=== PATIENT | male | born 2005 | race Caucasian/White ===

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

== ENCOUNTER 2024-06-15 19:50 | Emergency (ER) | payer OTHER, SELFPAY ==
[2024-06-15 20:34] VITALS: BP 150/78; PULSE 106; RESP 20; TEMP 37.3; O2SAT 100; BMI 24.4
--- NOTE | 2024-06-15 20:35 | ED_ITS ---
HPI - URI/Sore Throat General Chief Complaint: General Medical Stated Complaint: sore throat Time Seen by Provider: 06/15/24 20:35 Source: patient Mode of arrival: ambulatory Limitations: no limitations History of Present Illness ED Provider: Derek Santos PA-C HPI Narrative: 18 yo male presents to the ER for evaluation of worsening sore throat for the last 5 days along with pain with swallowing. Symptoms have been worsening. No known sick contacts. No known fevers. He attempted to gargle with salt water but it made him vomit. No chest pain, shortness of breath, abdominal pain. No rashes. MD elicited complaint: sore throat Onset (ago): day(s) (5) Consistency: progressively worsening Severity: severe Able to tolerate fluids by mouth: Yes Exacerbating factors: swallowing Relieving factors: nothing Associated symptoms: headache, nasal congestion and sore throat Treatments prior to arrival: none Related Data Previous Rx's ?Medication ?Instructions ?Recorded loratadine 10 mg tablet (Allergy 10 mg PO DAILY PRN allergy 05/12/21 Relief (loratadine)) symptoms 30 days #30 tabs azithromycin 250 mg tablet See Rx Instructions PO .COMPLEX #6 06/15/24 (Zithromax Z-Deuce) tabs ibuprofen 600 mg tablet 600 mg PO Q8H PRN fever or pain 06/15/24 #14 tabs Allergies Allergy/AdvReac Type Severity Reaction Status Date / Time Seasonal Allergies Allergy Mild runny nose Verified 06/15/24 20:36 amoxicillin [AMOXICILLIN] Allergy Unknown RASH, hives Verified 06/15/24 20:36 penicillin V Allergy Unknown rash Verified 06/15/24 20:36 Penicillins [PENICILLINS] Allergy Unknown RASH Verified 06/15/24 20:36 Review of Systems Review of Systems: Yes all other systems are reviewed and are negative [facility] Past Medical History Surgical History No pertinent past surgical history Family History Family History Mother Migraines Father Migraines Maternal Grandfather Diabetes type 2, controlled Maternal Grandmother Diabetes type 2, controlled Hypertension Social History Social History (Updated 08/25/21 @ 08:39 by Dipti Chappell CMA) Household Members: Family Physical Exam Vital Signs: Vital Signs: Last Vital Signs Temp 99.2 F 06/15/24 20:34 Pulse 106 H 06/15/24 20:34 Resp 20 06/15/24 20:34 BP 150/78 H 06/15/24 20:34 Pulse Ox 100 06/15/24 20:34 O2 Del Method Room Air 06/15/24 20:34 BMI result Body Mass Index 24.4 Appearance: Alert. Oriented X3. No acute distress. Head: normocephalic, atraumatic. Eyes: Pupils equal, round and reactive to light. ENT: Pharynx with moist mucous membranes. Bilateral tonsillar swelling with diffuse exudate. Uvula midline. Slightly muffled voice. Handling secretions normally. Neck: Normal inspection. Neck supple. CVS: Normal heart rate and rhythm. Pulses normal. Respiratory: No respiratory distress. Breath sounds normal. Skin: Skin warm and dry. Normal skin color. Normal skin turgor. No rashes. Extremities: No lower extremity edema. No joint swelling. Neuro/psych: Oriented X 3. Grossly normal, nonfocal Medical Decision Making Medical Decision Making MDM Narrative: 18-year-old male presents to the ER for evaluation of worsening sore throat and painful swallowing for the last 5 days. He does have a slightly muffled voice on exam. He has bilateral tonsillar swelling or exudates consistent with strep pharyngitis. His uvula is midline knees handling secretions normally. Bilateral peritonsillar abscess is less likely. He is nontoxic appearing. Vital signs are stable in triage, he is mildly tachycardic with a temperature of 99.2 degrees. At this time comfortable with treatment for strep pharyngitis, will prescribe a Z-Deuce as he is allergic to penicillin. Ibuprofen also prescribed. Counseled on other symptomatic measures. Counseled on return precautions. Stable for discharge home Differential Diagnosis Differential Diagnoses: The differential diagnosis associated with the presentation includes strep, covid, flu, rsv, other viral syndrome, bronchitis, pneumonia, less likely peritonsillar abcsess or retropharyngeal abscess External Record Review External record reviewed: Outpatient record and Prior outpatient labs Prescription Management I considered prescription management with: Pain Medication and Antibiotic Critical Care Time Critical Care Time Critical Care Time: No Discharge Plan Discharge Clinical Impression: Strep throat Patient Disposition: Home, Self-Care Instructions: Strep Throat (DC) Additional Instructions: Take the prescribed antibiotics as directed, complete the entire course and do not miss any doses Recommend [id number] Chloraseptic spray or Cepacol lozenges as needed for sore throat. These medications will help numb the back your throat. Take prescribed anti-inflammatory pain medication every 6-8 hours. Rest and drink plenty of fluids. If you develop new or worsening symptoms call 911 or come back to the ER for further evaluation. Prescriptions: New azithromycin [Zithromax Z-Deuce] 250 mg tablet See Rx Instructions .ROUTE .COMPLEX Qty: 6 0RF Rx Instructions: take 500 mg today (day 1), then 250 mg for 4 days (days 2-5) ibuprofen 600 mg tablet 600 mg PO Q8H PRN (Reason: fever or pain) Qty: 14 0RF No Action loratadine [Allergy Relief (loratadine)] 10 mg tablet 10 mg PO DAILY PRN (Reason: allergy symptoms) 30 Days Qty: 30 3RF Stand Alone Forms: Work/School Release Print Language: Pashto
[2024-06-15 20:42] VITALS: BP 150/78; PULSE 106; RESP 20; TEMP 37.3; O2SAT 100
== END 2024-06-15 21:01 | disposition home or self-care (01) ==
LOC: HO.ED 20:54
PROVIDERS: Emergency Provider Emergency Medicine; PCP Physician Assistant
DX: J02.0 Streptococcal pharyngitis (principal)
CPT/HCPCS: 99282; 99283

== ENCOUNTER 2024-06-17 17:02 | Emergency (ER) | payer OTHER, SELFPAY ==
[2024-06-17 17:10] VITALS: BP 112/66; PULSE 104; RESP 18; TEMP 36.7; O2SAT 99; BMI 25.0
--- NOTE | 2024-06-17 17:11 | ED.GENADULT ---
HPI - General Adult General Chief complaint: General Medical Stated complaint: not feeling good Time Seen by Provider: 06/17/24 18:56 Source: patient Mode of arrival: ambulatory Limitations: no limitations History of Present Illness ED Provider: armando LUEVANO narrative: Patient is a 18-year old male presenting to the ED with complaint of worsening sore throat after being started on antibiotics for strep on 06/15, symptoms began 5 days prior to that. Denies fevers. Reports difficulty/painful swallowing food, medication. Feels symptoms have not improved at all on the antibiotics. complaint: sore throat Onset (ago): day(s) Radiation: non-radiation Severity: severe Quality: burning Pain Consistency: constant Relieving factors: none Exacerbating factors: eating Treatments prior to arrival: other Related Data Previous Rx's ?Medication ?Instructions ?Recorded loratadine 10 mg tablet (Allergy 10 mg PO DAILY PRN allergy 05/12/21 Relief (loratadine)) symptoms 30 days #30 tabs azithromycin 250 mg tablet See Rx Instructions PO .COMPLEX #6 06/15/24 (Zithromax Z-Deuce) tabs ibuprofen 600 mg tablet 600 mg PO Q8H PRN fever or pain 06/15/24 #14 tabs Allergies Allergy/AdvReac Type Severity Reaction Status Date / Time Seasonal Allergies Allergy Mild runny nose Verified 06/17/24 17:13 amoxicillin [AMOXICILLIN] Allergy Unknown RASH, hives Verified 06/17/24 17:13 penicillin V Allergy Unknown rash Verified 06/17/24 17:13 Penicillins [PENICILLINS] Allergy Unknown RASH Verified 06/17/24 17:13 Review of Systems Review of Systems: As per HPI. Yes all other systems are reviewed and are negative Constitutional: Constitutional: Reports as per HPI [facility] Past Medical History Surgical History No pertinent past surgical history Family History Family History Mother Migraines Father Migraines Maternal Grandfather Diabetes type 2, controlled Maternal Grandmother Diabetes type 2, controlled Hypertension Social History Social History (Updated 08/25/21 @ 08:39 by Dipti Chappell CMA) Household Members: Family Alcohol intake: never Smoked in Last 30 Days: No Use of substances other than those prescribed or required for medical reasons: No Advance Directives: No Advance Directives Information Provided: No Do you have a plan to hurt others: No Plan Physical Exam ED Vital Signs: Vital Signs - 24 hr 06/17/24 17:10 06/17/24 19:13 06/17/24 19:29 Temperature 98.1 F 98.2 F 98.2 F Pulse Rate 104 H 98 98 Respiratory Rate 18 16 16 Blood Pressure 112/66 110/63 110/63 Pulse Oximetry 99 99 99 Oxygen Delivery Method Room Air Room Air Room Air BMI result Body Mass Index 25.0 Vital signs have been reviewed and appear to be correct. Blood pressure normal. Heart rate normal. Respiratory rate normal. Temperature normal. Oxygen saturation normal. Const General: cooperative, healthy appearing and no acute distress Orientation/consciousness: oriented to person, oriented to place, oriented to time and patient oriented x3 Limitations: no limitations HENMT Head: Yes normocephalic and Yes atraumatic Ears: external ears normal General nose exam: Normal external nose present Face and sinus: Yes face symmetric Mouth: Normal oral and palatal mucosa present, lip normal, tongue normal, oropharynx normal, moist mucous membranes, no drooling, muffled voice, no trismus and No restricted motion Throat: Yes uvula midline, Yes abnormal tonsil (3+ bilat, erythematous, exudate bilat), No peritonsillar mass and No uvular edema Eyes Pupils: Equal, round and reactive pupils present Neck Neck: Yes normal visual inspection and Yes supple Lymphatic: lymphadenopathy bilateral posterior cervical Resp Effort & Inspection: normal respiratory effort and able to speak in complete sentences Auscultation: clear to auscultation bilaterally Cardio Rate: regular rate Rhythm: regular rhythm Heart sounds: S1 normal heart sound present and S2 normal heart sound present GI Palpation (GI): Soft to palpation and nontender Auscultation: normoactive bowel sounds General: Yes no CVA tenderness Back/Spine/Pelvis Back: no CVA tenderness Skin General skin exam: elasticity normal and turgor normal Neuro General: oriented to person, oriented to place, oriented to time, patient oriented x3, moves all extremities, no focal motor deficits and CN's II-XI intact bilaterally Cranial nerves: Yes Equal, round and reactive pupils present Cognition (Neuro): normal cognition Extrem General: Yes full ROM, Yes no pedal edema and Yes no calf tenderness Psych Mental Status: mental status grossly normal Affect: normal affect Thought process: Normal thought process present Course Course Course Narrative: This is a rapid medical exam performed by Vinicio Welch NP: Additional HPI, ROS, PE not included below will be deferred to primary provider. Patient is a 18-year old male presenting to the ED with complaint of worsening sore throat after being diagnosed with strep on 06/15, sxs began 5 days prior to that. Voice muffled but managing secretions. Denies fevers. Difficulty swallowing food, medication. Plan: labs, mono, ?CT Medications Administered Discontinued Medications Generic Name Dose Route Start Last Admin Trade Name Rhoda PRN Reason Stop Dose Admin Dexamethasone 10 mg 06/17/24 18:57 06/17/24 19:23 Dexamethasone 2 Mg Tablet PO 06/17/24 18:58 10 mg ONCE ONE Administration Ibuprofen 600 mg 06/17/24 19:02 06/17/24 19:23 Ibuprofen 600 Mg Tablet PO 06/17/24 19:03 600 mg ONCE ONE Administration Medical Decision Making Medical Decision Making [facility] Narrative: Patient is a 18-year old male presenting to the ED with complaint of worsening sore throat after being started on antibiotics for strep on 06/15, symptoms began 5 days prior to that. On exam patient is awake, A+Ox3, VS WNL, afebrile, normal neurological exam without focal deficits, physical exam findings as above. Given reported symptoms and physical exam findings, initial differential includes viral pharyngitis, mononucleosis. Do not suspect [employer]/RPA. Labs notable for leukocytosis, mildly elevated transaminases, monoscreen positive. Patient updated on results and all questions answered. Patient states that he does not participate in any contact sports. Patient medicated 1 time dose of dexamethasone in the ED to decrease inflammation and advised patient to alternate Tylenol and ibuprofen to control pain and inflammation at home. Also advised warm salt water gargles and honey. Follow up with PCP. Return precautions discussed. Patient verbalized understanding of and agreement with plan. Differential Diagnosis Differential Diagnoses: The differential diagnosis associated with the presentation includes As per [facility] Lab Data [facility] Lab Attestation statement: I reviewed the patient's lab results. as per [facility] 06/17/24 18:23 06/17/24 18:23 Labs: Lab Results 06/17/24 Range/Units 18:23 WBC 13.4 H (4.8-10.8) X10*3/uL RBC 4.94 (4.60-5.80) X10*6/uL Hgb 15.0 (14.0-18.0) g/dl Hct 43.6 (42.0-52.0) % MCV 88.3 (80.0-98.0) fL MCH 30.4 (27.0-33.0) pg MCHC 34.4 (31.0-36.0) g/dl RDW 12.9 (11.0-16.0) % Plt Count 146 L (160-400) X10*3/uL MPV 11.3 (9.4-12.4) fL Immature Gran % (Auto) Cancelled Neut % (Auto) Cancelled Lymph % (Auto) Cancelled [place] % (Auto) Cancelled Eos % (Auto) Cancelled Baso % (Auto) Cancelled Lymph # (Auto) Cancelled [place] # (Auto) Cancelled Eos # (Auto) Cancelled Baso # (Auto) Cancelled Abs Immat Gran (auto) Cancelled Absolute Neuts (auto) Cancelled Absolute Nucleated RBC 0.000 (0.0-0.012) X10*3/uL Nucleated RBC % (auto) 0.0 (0.0-0.2) /100WBC Neutrophils % (Manual) 55 (45-73) % Band Neutrophils % 3 (3-5) % Lymphocytes % (Manual) 22 (20-40) % Atypical Lymphs % (Man) 10 H (0-6) % Monocytes % (Manual) 9 (2-11) % Basophils % (Manual) 1 (0-2) % Abs Neuts (Manual) 7.8 (2.0-8.3) X10*3/uL Lymphocytes # (Manual) 2.9 (1.2-4.9) X10*3/uL Atyp Lymphs # (Manual) 1.3 x10*3/uL Monocytes # (Manual) 1.2 (0.1-1.2) X10*3/uL Basophils # (Manual) 0.1 (0.0-0.2) X10*3/uL Platelet Estimate SLIGHTLY DECREASED (NORMAL) Plt Morphology Comment NORMAL RBC Morphology NORMAL Sodium 137 (135-145) mmol/L Potassium 3.9 (3.3-5.1) mmol/L Chloride 103 (96-108) mmol/L Carbon Dioxide 26 (22-29) mmol/L Anion Gap 12 (12-20) BUN 7 L (9-16) mg/dL Creatinine 0.82 (0.5-1.4) mg/dL Estim Creat Clear Calc 149.6 Estimated GFR > 60 Random Glucose 113 (60-115) mg/dL Calcium 9.4 (8.4-10.2) mg/dL Total Bilirubin 0.5 (0.0-1.0) mg/dL AST 39 H (5-37) U/L ALT 49 H (0-40) U/L Alkaline Phosphatase 66 (39-117) U/L Total Protein 7.5 (6.5-8.0) g/dL Albumin 3.9 (3.5-5.0) g/dL Monoscreen Positive A (Negative) External Record Review External record reviewed: Inpatient record, Office record and Outpatient record Discharge Plan Discharge Clinical Impression: Mononucleosis Patient Disposition: Home, Self-Care Instructions: Mononucleosis (ED) Additional Instructions: You were evaluated in the emergency department today for a sore throat. You tested positive for mono, which is a viral infection. You were medicated with a dose of dexamethasone, which is a steroid, in the ED today to decrease inflammation. You should also complete the course of antibiotics that you were previously prescribed for strep. We recommend that you take 600 mg of ibuprofen or 650 mg of Tylenol every 6 hours as needed for pain. If necessary, you can alternate these medications every 3 hours. For example, at 9:00 a.m. take Tylenol, then at noon take ibuprofen, then at 3:00 p.m. take Tylenol, etc.. Be sure to drink adequate fluids. You can also gargle with warm salt water several times daily and take 1 teaspoon of honey several times daily as needed. Refrain from any contact sports for the next 6 weeks. Follow-up with your primary care provider. Return to the emergency department if you develop difficulty swallowing, worsening pain, shortness of breath, are unable to swallow your saliva, or any other concerning symptoms. Prescriptions: No Action loratadine [Allergy Relief (loratadine)] 10 mg tablet 10 mg PO DAILY PRN (Reason: allergy symptoms) 30 Days Qty: 30 3RF azithromycin [Zithromax Z-Deuce] 250 mg tablet See Rx Instructions .ROUTE .COMPLEX Qty: 6 0RF Rx Instructions: take 500 mg today (day 1), then 250 mg for 4 days (days 2-5) ibuprofen 600 mg tablet 600 mg PO Q8H PRN (Reason: fever or pain) Qty: 14 0RF Stand Alone Forms: Work/School Release Interventions: ED Discharge Assessment Last Done: 06/17/24 19:29 Discharge Date/Time: 06/17/24 19:25 Print Language: Swiss
[2024-06-17 18:29] LABS: Hematocrit 43.6 % (42.0-52.0); Mean Corpuscular HGB Conc 34.4 g/dl (31.0-36.0); Mean Corpuscular Hemoglobin 30.4 pg (27.0-33.0); Mean Corpuscular Volume 88.3 fL (80.0-98.0); Mean Platelet Volume 11.3 fL (9.4-12.4); Platelet Count 146 X10*3/uL (160-400); Red Blood Count 4.94 X10*6/uL (4.60-5.80); Red Cell Distribution Width 12.9 % (11.0-16.0); White Blood Count 13.4 X10*3/uL (4.8-10.8)
[2024-06-17 18:46] LABS: Monotest Positive (Negative)
[2024-06-17 18:49] LABS: Alanine Aminotransferase 49 U/L (0-40); Albumin Level 3.9 g/dL (3.5-5.0); Alkaline Phosphatase 66 U/L (39-117); Anion Gap 12 (12-20); Aspartate Amino Transferase 39 U/L (5-37); Bilirubin Total 0.5 mg/dL (0.0-1.0); Blood Urea Nitrogen 7 mg/dL (9-16); Calcium 9.4 mg/dL (8.4-10.2); Carbon Dioxide 26 mmol/L (22-29); Chloride 103 mmol/L (96-108); Creatinine Clr Calc Pharmacy 149.6; Estimated Glomerular Filt Rate > 60; Glucose Random 113 mg/dL (60-115); Potassium 3.9 mmol/L (3.3-5.1); Sodium 137 mmol/L (135-145); Total Protein 7.5 g/dL (6.5-8.0)
[2024-06-17 19:06] LABS: Band Neutrophils Percent 3 % (3-5); Basophils Abs Manual 0.1 X10*3/uL (0.0-0.2); Basophils Percent Manual 1 % (0-2); Monocytes Absolute Manual 1.2 X10*3/uL (0.1-1.2); Monocytes Percent Manual 9 % (2-11)
[2024-06-17 19:07] LABS: Neutrophils Absolute Manual 7.8 X10*3/uL (2.0-8.3); Neutrophils Percent Manual 55 % (45-73)
[2024-06-17 19:08] LABS: RBC Morphology NORMAL
[2024-06-17 19:09] LABS: Platelet Estimate SLIGHTLY DECREASED (NORMAL); Platelet Morphology Comment NORMAL
[2024-06-17 19:10] LABS: Atypical Lymph Absolute Manual 1.3 x10*3/uL; Atypical Lymphs Percent Manual 10 % (0-6); Lymphocytes Absolute Manual 2.9 X10*3/uL (1.2-4.9); Lymphocytes Percent Manual 22 % (20-40)
[2024-06-17 19:13] VITALS: BP 110/63; PULSE 98; RESP 16; TEMP 36.8; O2SAT 99
[2024-06-17] MEDS: dexAMETHasone 2 MG TABLET 10 MG PO (19:23)
[2024-06-17] MEDS: Ibuprofen 600 MG TABLET PO (19:23)
[2024-06-17 19:29] VITALS: BP 110/63; PULSE 98; RESP 16; TEMP 36.8; O2SAT 99
== END 2024-06-17 19:25 | disposition home or self-care (01) ==
PROVIDERS: Registered Nurse Emergency; Emergency Provider Internal Medicine; PCP Physician Assistant
DX: B27.90 Infectious mononucleosis, unspecified without complication (principal); J02.9 Acute pharyngitis, unspecified
CPT/HCPCS: 36415; 80053; 85007; 85025; 85027; 86308; 99283; 99284; J8540

== ENCOUNTER 2025-06-06 18:01 | Emergency (ER) | payer OTHER, SELFPAY ==
--- NOTE | ~2025-06-06 | XR_ITS ---
CLINICAL HISTORY: lac crush wound on index finger Three views of the left second finger. COMPARISON: None provided. FINDINGS: Small displaced linear avulsion fracture present along the plantar distal aspect of the 2nd distal phalanx, seen only on lateral imaging. Visualized adjacent bones appear intact. No radiopaque foreign body. IMPRESSION: 1. Displaced linear avulsion fracture along the plantar aspect of the 2nd distal phalanx. This document has been electronically signed by: Lukasz Bello MD on 06/06/2025 18:56:48
[2025-06-06 18:06] VITALS: BP 126/61; PULSE 85; RESP 16; TEMP 37; O2SAT 100; BMI 25.9
--- NOTE | 2025-06-06 18:14 | ED_ITS ---
HPI - General Adult General Chief complaint: Extremity Problem Stated complaint: lt finger laceration Time Seen by Provider: 06/06/25 20:30 Source: patient, RN notes reviewed and old records reviewed Mode of arrival: ambulatory Limitations: no limitations History of Present Illness ED Provider: Ania LUEVANO narrative: 19-year-old male presents for evaluation of a left index finger injury. Patient reports that he accidentally got his finger crushed between a barbell at the gym. He has a wounds the tip of the finger pain This injury was at 11:00 a.m. this morning. It has been bleeding slowly ever since pain He has minor pain. He does not know in his last tetanus shot was pain Denies any other injuries Related Data Previous Rx's ?Medication ?Instructions ?Recorded loratadine 10 mg tablet (Allergy 10 mg PO DAILY PRN al lergy 05/12/21 Relief (loratadine)) symptoms 30 days #30 tabs azithromycin 250 mg tablet See Rx Instructions PO .COM PLEX #6 06/15/24 (Zithromax Z-Deuce) tabs ibuprofen 600 mg tablet 600 mg PO Q8H PRN fever or p ain 06/15/24 #14 tabs cephalexin 500 mg tablet 500 mg PO Q8H #14 tabs 06/06 Allergies Allergy/AdvReac Type Severity Reaction Status Date / Time Seasonal Allergies Allergy Mild runny nose Verified 06/06/25 18:08 amoxicillin (AMOXICILLIN) Allergy Unknown RASH, hives Verified 06/06/25 18:08 penicillin V Allergy Unknown rash Verified 06/06/25 18:08 Penicillins (PENICILLINS) Allergy Unknown RASH Verified 06/06/25 18:08 Review of Systems Constitutional: Constitutional: Denies body ache(s), Denies chills and Denies fever(s) Integumentary/Breasts: Skin/Breast: Reports wounds PMFSH Past Medical History Surgical History No pertinent past surgical history Family History Family History Mother Migraines Father Migraines Maternal Grandfather Diabetes type 2, controlled Maternal Grandmother Diabetes type 2, controlled Hypertension Social History Social History (Updated 08/25/21 @ 08:39 by Dipti Chappell CMA) Household Members: Family Alcohol intake: never Smoked in Last 30 Days: Yes Use of substances other than those prescribed or required for medical reasons: Yes Substance Use Type: Marijuana Advance Directives: No Advance Directives Information Provided: Yes Physical Exam ED Vital Signs: Vital Signs - 24 hr 06/06/25 18:06 06/06/25 20:14 06/06/25 21:59 Temperature 98.6 F 98.3 F 98.3 F Pulse Rate 85 64 64 Respiratory Rate 16 14 14 Blood Pressure 126/61 106/51 L 106/51 L Pulse Oximetry 100 98 98 Oxygen Delivery Method Room Air Room Air Room Air BMI result Body Mass Index 25.9 Const General: healthy appearing, comfortable, no acute distress, alert and awake Nutritional Appearance: well nourished Orientation/consciousness: patient oriented x3 HENMT Head: Yes normocephalic and Yes atraumatic Eyes Eyelids: Yes eyelids normal Conjunctivae: conjunctivae normal Sclerae: sclerae normal Corneas: corneas normal Pupils: Equal, round and reactive pupils present EOM: EOMs intact bilaterally Neck Neck: Yes full ROM Resp Effort & Inspection: normal respiratory effort, able to speak in complete sentences and not labored Skin General skin exam: elasticity normal Neuro General: patient oriented x3 Cranial nerves: Yes Equal, round and reactive pupils present and Yes Bilaterally intact EOM present Cognition (Neuro): normal cognition Extrem Other: There is an irregular, flap-like laceration to the radial side of the left index finger adjacent to the nail plate. There was minimal bleeding. We will hold tenderness to palpation. No palpable deformity Course Course Course Narrative: Rapid medical examination performed in triage by Sally Wong PA-C. Patient is a 19 year old assigned male at presenting to the emergency department with a left index finger injury. Detailed physical exam and review of systems are deferred to the manager recruiting. Imaging ordered. Patient placed back in the waiting room pending room availability and results. Medications Administered Discontinued Medications Generic Name Dose Route Start Last Admin Trade Name Freq PRN Reason Stop Dose Admin Cephalexin HCl 500 mg 06/06/25 21:45 06/06/25 21:55 Cephalexin 500 Mg Capsule PO 06/06/25 21:46 500 mg ONCE ONE Administration Diphtheria/Tetanus/Acell Pertussis 0.5 ml 06/06/25 21:01 06/06/25 21:37 Diphth,Pertus(Acell),Tet Adult 0.5 Ml Syringe IM 06/06/25 21:02 0.5 ml .ONCE ONE Administration Lidocaine HCl 5 ml 06/06/25 21:01 06/06/25 21:36 Lidocaine Hcl 1 % 20 Ml Vial INFILTRATI 06/06/25 21:02 5 ml ONCE ONE Administration Procedures Laceration Laceration 1: Site: hand (index finger) Side (If applicable): left Size (cm): 2 Description: linear Depth: simple, single layer Local Anesthetic: lidocaine 1% Amount of anesthesia used (mL): 3 (Digital block) Pre-repair: wound explored and irrigated extensively Skin layer closed with: nylon Size (cm): 5-0 Number of sutures: 2 Technique: simple, interrupted Medical Decision Making Medical Decision Making MDM Narrative: 19-year-old male presents for evaluation of a crush injury. His x-ray confirms a small avulsion fracture. He has a very superficial, avulsion laceration. There was no visible bone beneath the skin avulsion. However given that it is actively bleeding does require some closure, see procedure note. I was able to close the wound with 2 sutures in his small amount of Dermabond. The patient be covered with a short course of Keflex given the fracture and laceration. He has full range of motion with flexion-extension, no evidence of template injury Differential Diagnosis Differential Diagnoses: The differential diagnosis associated with the presentation includes Laceration Skin tear Fracture Avulsion Independent Interpretation I performed an independent interpretation of an: Plain X-Ray (Agree with Radiology interpretation, small avulsion fracture) Radiology Impression Discussion of test interpretation with radiology: I have reviewed the radiologist's reading. Radiologist Impression: FINDINGS: Small displaced linear avulsion fracture present along the plantar distal aspect of the 2nd distal phalanx, seen only on lateral imaging. Visualized adjacent bones appear intact. No radiopaque foreign body. IMPRESSION: 1. Displaced linear avulsion fracture along the plantar aspect of the 2nd distal phalanx. This document has been electronically signed by: Lukasz Bello MD on 06/06/2025 18:56:48 Discharge Plan Discharge Clinical Impression: Finger laceration, Finger fracture, left Patient Disposition: Home, Self-Care Instructions: Finger Fracture (ED), Finger Laceration (ED) Additional Instructions: You had 2 sutures placed that can be removed in 10-14 days. The glue should resolve on its own in about 1 week. Your tetanus was updated today. You do have a very tiny avulsion fracture of the tip of the left 2nd finger. You may follow up with your primary doctor regarding this. Take cephalexin 3 times a day for the next 5 days to prevent infection Prescriptions: New cephalexin 500 mg tablet 500 mg PO Q8H Qty: 14 0RF No Action loratadine [Allergy Relief (loratadine)] 10 mg tablet 10 mg PO DAILY PRN (Reason: allergy symptoms) 30 Days Qty: 30 3RF azithromycin [Zithromax Z-Deuce] 250 mg tablet See Rx Instructions .ROUTE .COMPLEX Qty: 6 0RF Rx Instructions: take 500 mg today (day 1), then 250 mg for 4 days (days 2-5) ibuprofen 600 mg tablet 600 mg PO Q8H PRN (Reason: fever or pain) Qty: 14 0RF Stand Alone Forms: Work/School Release Interventions: ED Discharge Assessment Last Done: 06/06/25 21:59 Discharge Date/Time: 06/06/25 22:00 Print Language: Icelandic
--- NOTE | 2025-06-06 20:11 | MHC.EDTECH ---
pt's left index finger soaking in betadine/saline solution
[2025-06-06 20:14] VITALS: BP 106/51; PULSE 64; RESP 14; TEMP 36.8; O2SAT 98
--- OUTSIDE RECORDS SUMMARY | 2025-06-06 20:37 | XMS_ITS | Encounter Summary ---
Author Organization [facility] Address [address] [place] [id number] Phone Care Team Providers Care Paramedical Aide Name Role Phone Kayleen Owens NP Primary Care Provider Kim rendon Encounter Details Date Type Department Care Team (Late st Contact Info) Description 01/19/2010 Documentation [facility] [place] [address] [place] [address] Family Medicine, Physician [address] [place], [place] [phone] Social History Tobacco Use Types Packs/Day Years Used Date Smoking Tobacco: Never Assessed Sex and Gender Information Value Date Recorded Sex Assigned at Not on file Legal Sex Male 4:51 PM EDT Gender Identity Not on file Sexual Orientation Not on file documented as of this encounter Plan of Treatment Not on file documented as of this encounter Visit Diagnoses Not on filedocumented in this encounter Care Teams Paramedical Aide Relationship Specialty Start Date End Date Kayleen Owens NP PCP - General 05/07/17 01/03/23 documented as of this encounter
--- OUTSIDE RECORDS SUMMARY | 2025-06-06 20:38 | XMS_ITS | Encounter Summary ---
Author Organization [facility] Address [address] [place] [address] Phone Care Team Providers Care Picture Painter Name Role Phone Kayleen Owens NP Primary Care Provider Kim rendon Encounter Details Date Type Department Care Team (Late st Contact Info) Description 05/13/2017 Conversion Encounter [facility] - [address] [id number] Social History Tobacco Use Types Packs/Day Years [...] on filedocumented in this encounter Care Teams Picture Painter Relationship Specialty Start Date End Date Kayleen Owens NP PCP - General 05/07/17 01/03/23 documented as of this encounter
--- OUTSIDE RECORDS SUMMARY | 2025-06-06 20:38 | XMS_ITS | Clinical Summary ---
Author Organization [facility] Address [address] [place] [phone] Phone Care Team Providers Care Gun Repair Clerk Name Role Phone Unavailable Primary Care Provider Unavailabl e Immunizations Immunization Administration Dates Next Due DTaP / Hep B / IPV 2004,2004, 004 DTaP 5 06/25/2008,01/20/2006 H1N1 09/12/2009,07/30/2009 Hep B, ped/adol 2004 Hib (HbOC) 06/24/2005,03/18/2005,2004 ,2004 Hib (PRP-T) 10/13/2005 IPV 07/30/2009 Influenza Split 07/19/2013,07/12/2012,07/15/2011 ,07/29/2010 Influenza, injectable, trivalent 09/12/2009,07/28,06/25/2008 MMR 06/25/2008,06/24/2005 Pneumococcal Conjugate 10/13/2005,2004,,2004 Varicella 06/25/2008,06/24/2005 Family History Relation Name Status Comments Brother Alive Brother: Health y Father Alive Father: Healthy Maternal Grandfather Alive Materna l uncle: Asthma Maternal Grandmother Alive Materna l grandmother: Hypertension Maternal Great-Grandfather M GGF: Diabetes mellitus Maternal Great-Grandmother Alive M GGM: Diabetes mellitus Mother Alive Mother: Healthy Other Family history of Obesity, Family history of Migraines, Family history of Hyperlipidemia Social History Tobacco Use Types Packs/Day Years Used Date Smoking Tobacco: Never Assessed Sex and Gender Information Value Date Recorded Sex Assigned at Not on file Legal Sex Male 4:51 PM EDT Gender Identity Not on file Sexual Orientation Not on file Last Filed Vital Signs Vital Sign Reading Time Taken Comments Blood Pressure 100/64 07/19/2013 12:00 AM EDT Pulse - - Temperature 37.4 C (99.4 F) 05/23/2013 12:00 AM EDT Respiratory Rate - - Oxygen Saturation - - Inhaled Oxygen Concentration - - Weight 45.4 kg (100 lb) 07/19/2013 12:00 AM EDT Height 134 cm (4' 4.75 ) 07/19/2013 12:00 AM EDT Body Mass Index 25.27 07/19/2013 12:00 AM EDT Plan of Treatment Health Maintenance Due Date Last Done Comments DTaP,Tdap,and Td Vaccines (6 - Tdap) 2015 06/25/2008, 01/20/2006, 2004, Additional history exists HPV Vaccines (1 - Male 3-dose series) 2019 Men B Vaccine (1 of 2 - Standard) 2020 Influenza Vaccines (#1) 2025 07/19/20 13, 07/12/2012, 07/15/2011, Additional history exists COVID-19 Vaccine (1 - season) 2025 Hepatitis B Vaccines Completed 2004, 2004, 2004, Additional history exists HIB Vaccines Completed 10/13/2005, 05/29, 03/18/2005, Additional history exists Pneumococcal Vaccine Completed 10/13/2005, 2004, 2004, Additional history exists MMR Vaccines Completed 06/25/2008, 06/24/2005 Varicella Vaccines Completed 06/25/2008, 06/24/2005 IPV Vaccines Completed 07/30/2009, 11/26, 2004, Additional history exists Hepatitis A Vaccines Aged Out No long er eligible based on patient's age to complete this topic Meningococcal Vaccine Aged Out No laverne pk eligible based on patient's age to complete this topic
--- OUTSIDE RECORDS SUMMARY | 2025-06-06 20:38 | XMS_ITS | Encounter Summary ---
Author Organization [facility] Address [address] [place] [phone] Phone Care Team Providers Care Software Database Architect Name Role Phone Kayleen Owens NP Primary Care Provider Kim rendon Encounter Details Date Type Department Care Team (Late st Contact Info) Description 07/26/2013 Documentation [facility] [place] Family Medicine [address] [place] [address] Family Medicine, Physician [address] [place], [place] [phone] Social History Tobacco Use Types Packs/Day Years [...] on filedocumented in this encounter Care Teams Software Database Architect Relationship Specialty Start Date End Date Kayleen Owens NP PCP - General 05/07/17 01/03/23 documented as of this encounter
--- OUTSIDE RECORDS SUMMARY | 2025-06-06 20:38 | XMS_ITS | Encounter Summary ---
Author Organization [facility] Address [address] [place] [phone] Phone Care Team Providers Care Credit And Collections Analyst Name Role Phone Kayleen Owens NP Primary Care Provider Kim rendon Encounter Details Date Type Department Care Team (Late st Contact Info) Description 02/14/2010 [place] [facility] [place] [address] [place] [address] Family Medicine, Physician [address] [place], [place] [phone] Social History Tobacco Use Types Packs/Day Years [...] on filedocumented in this encounter Care Teams Credit And Collections Analyst Relationship Specialty Start Date End Date Kayleen Owens NP PCP - General 05/07/17 01/03/23 documented as of this encounter
[2025-06-06] MEDS: Lidocaine HCl 1 % 20 ML VIAL 5 ML INFILTRATI (21:36)
[2025-06-06] MEDS: Diphth,Pertus(ACell),Tet Adult 0.5 ML SYRINGE IM (21:37)
[2025-06-06 21:59] VITALS: BP 106/51; PULSE 64; RESP 14; TEMP 36.8; O2SAT 98
== END 2025-06-06 22:00 | disposition home or self-care (01) ==
PROVIDERS: Emergency Provider Emergency Medicine
DX: S61.211A Laceration without foreign body of left index finger without damage to nail, initial encounter (principal); W23.1XXA Caught, crushed, jammed, or pinched between stationary objects, initial encounter; Y93.B3 Activity, free weights; Y92.89 Other specified places as the place of occurrence of the external cause; Y99.9 Unspecified external cause status; Z23 Encounter for immunization
CPT/HCPCS: 12001; 73140; 90471; 90715; 99284; J2003

== ENCOUNTER → 2025-06-06 18:30 | Outpatient (BNV) | payer OTHER, SELFPAY | PROVIDERS: Visit Provider Radiology Diagnostic Radiology | DX: S62.631A Displaced fracture of distal phalanx of left index finger, initial encounter for closed fracture (principal) | CPT/HCPCS: 73140 ==

== ENCOUNTER 2025-06-16 13:07 | Emergency (ER) | payer OTHER, SELFPAY ==
[2025-06-16 13:35] VITALS: BP 109/54; PULSE 64; RESP 16; TEMP 36.6; O2SAT 99; BMI 23.8
--- NOTE | 2025-06-16 13:35 | ED.GENADULT ---
HPI - General Adult General Chief complaint: General Medical Stated complaint: suture removal Time Seen by Provider: 06/16/25 13:11 Source: patient and RN notes reviewed Mode of arrival: ambulatory Limitations: no limitations History of Present Illness ED Provider: Karli Sanchez PA-C HPI narrative: This is a 19-year-old male who presents emergency department for suture removal. Patient had sutures placed here on June 06, 2025. Patient tolerated the sutures well without any complications or concerns. No drainage, no fevers or chills. No increased redness or swelling. He has been taking the antibiotics, has several doses left. No other complaints or concerns at this time. MD complaint: Suture removal Related Data Previous Rx's ?Medication ?Instructions ?Recorded loratadine 10 mg tablet (Allergy 10 mg PO DAILY PRN allergy 05/12/21 Relief (loratadine)) symptoms 30 days #30 tabs azithromycin 250 mg tablet See Rx Instructions PO .COMPLEX #6 06/15/24 (Zithromax Z-Deuce) tabs ibuprofen 600 mg tablet 600 mg PO Q8H PRN fever or pain 06/15/24 #14 tabs cephalexin 500 mg tablet 500 mg PO Q8H #14 tabs 06/06/25 Allergies Allergy/AdvReac Type Severity Reaction Status Date / Time Seasonal Allergies Allergy Mild runny nose Verified 06/16/25 13:37 amoxicillin (AMOXICILLIN) Allergy Unknown RASH, hives Verified 06/16/25 13:37 penicillin V Allergy Unknown rash Verified 06/16/25 13:37 Penicillins (PENICILLINS) Allergy Unknown RASH Verified 06/16/25 13:37 [facility] Past Medical History Attestation statement: The following information was validated with the patient. Surgical History No pertinent past surgical history Family History Family History Mother Migraines Father Migraines Maternal Grandfather Diabetes type 2, controlled Maternal Grandmother Diabetes type 2, controlled Hypertension Social History Social History Household Members: Family Alcohol intake: never Substance Use Type: Marijuana Advance Directives: No Advance Directives Information Provided: Yes Do you have a plan to hurt others: No Plan Physical Exam ED Exam Exam: General: Awake, alert, and oriented X3. No acute distress. HEENT: Normal inspection CVS: Normal heart rate and rhythm. Pulses normal. Respiratory: No respiratory distress Skin: Left 2nd digit with well-healed laceration noted to the radial side, no surrounding erythema or warmth. No evidence of wound dehiscence, no drainage Extremities: Normal to inspection Neuro: Oriented X 3. No motor deficit. No sensory deficit. Vital Signs: Vital Signs - 24 hr 06/16/25 13:35 06/16/25 13:44 Temperature 97.9 F 97.9 F Pulse Rate 64 64 Respiratory Rate 16 16 Blood Pressure 109/54 L 109/54 L Pulse Oximetry 99 99 Oxygen Delivery Method Room Air Room Air BMI result Body Mass Index 23.8 Medical Decision Making Medical Decision Making MDM Narrative: This is a 19-year-old male who presents emergency department for evaluation of suture removal. On arrival, vital signs within normal limits, he is speaking full sentences under no acute distress. Two sutures were removed successfully without any complications or concerns. Urged the importance of finishing the antibiotics. He understands and agrees with plan. Given strict return precautions and wound care instructions. Patient stable for discharge. Differential Diagnosis Differential Diagnoses: The differential diagnosis associated with the presentation includes Laceration, recheck, wound dehiscence, cellulitis, suture removal Discharge Plan Discharge Clinical Impression: Visit for suture removal Patient Disposition: Home, Self-Care Instructions: Stitches Removal (ED) Additional Instructions: You were seen in the emergency department for a suture removal. Keep wound clean and dry. Please finish the course of antibiotics. Do not pick at wound as this can cause you to have an infection. If any new or worsening symptoms occur including but not limited to increased redness, pain, fevers or chills, please seek emergent care. Prescriptions: No Action loratadine [Allergy Relief (loratadine)] 10 mg tablet 10 mg PO DAILY PRN (Reason: allergy symptoms) 30 Days Qty: 30 3RF azithromycin [Zithromax Z-Deuce] 250 mg tablet See Rx Instructions .ROUTE .COMPLEX Qty: 6 0RF Rx Instructions: take 500 mg today (day 1), then 250 mg for 4 days (days 2-5) ibuprofen 600 mg tablet 600 mg PO Q8H PRN (Reason: fever or pain) Qty: 14 0RF cephalexin 500 mg tablet 500 mg PO Q8H Qty: 14 0RF Interventions: ED Discharge Assessment Last Done: 06/16/25 13:44 Discharge Date/Time: 06/16/25 13:45 Print Language: Frisian
[2025-06-16 13:44] VITALS: BP 109/54; PULSE 64; RESP 16; TEMP 36.6; O2SAT 99
--- OUTSIDE RECORDS SUMMARY | 2025-06-16 13:45 | XMS_ITS | Encounter Summary ---
Author Organization [facility] Address [address] [place] [phone] Phone Care Team Providers Care [facility] Owner Name Role Phone Kayleen Owens NP Primary Care Provider Kim rendon Encounter Details Date Type Department Care Team (Late st Contact Info) Description 07/26/2013 Documentation [facility] [place] Family Medicine [address] [place] [address] Family Medicine, Physician [address] [place], [place] [phone] Social History Tobacco Use Types Packs/Day Years [...] on filedocumented in this encounter Care Teams [facility] Owner Relationship Specialty Start Date End Date Kayleen Owens NP PCP - General 05/07/17 01/03/23 documented as of this encounter
--- OUTSIDE RECORDS SUMMARY | 2025-06-16 13:45 | XMS_ITS | Clinical Summary ---
Author Organization [facility] Address [address] [place] [address] Phone Care Team Providers Care Demonstrator Sewing Techniques Name Role Phone Unavailable Primary Care Provider [...]
--- OUTSIDE RECORDS SUMMARY | 2025-06-16 13:45 | XMS_ITS | Encounter Summary ---
Author Organization [facility] Address [address] [place] [phone] Phone Care Team Providers Care Customer Care Manager Name Role Phone Kayleen Owens NP Primary Care Provider Kim rendon Encounter Details Date Type Department Care Team (Late st Contact Info) Description 01/19/2010 Documentation [facility] [place] Family Medicine [address] [place] [address] Family Medicine, Physician [address] [place], [place] [phone] Social History Tobacco Use Types Packs/Day Years [...] on filedocumented in this encounter Care Teams Customer Care Manager Relationship Specialty Start Date End Date Kayleen Owens NP PCP - General 05/07/17 01/03/23 documented as of this encounter
--- OUTSIDE RECORDS SUMMARY | 2025-06-16 13:45 | XMS_ITS | Encounter Summary ---
Author Organization [facility] Address [address] [place] [address] Phone Care Team Providers Care Social Services Manager Name Role Phone Kayleen Owens NP Primary Care Provider Kim rendon Encounter Details Date Type Department Care Team (Late st Contact Info) Description 02/14/2010 Documentation [facility] [place] [address] [place] [address] Family Medicine, Physician [address] [place], [place] [phone] Social History Tobacco Use Types Packs/Day Years [...] on filedocumented in this encounter Care Teams Social Services Manager Relationship Specialty Start Date End Date Kayleen Owens NP PCP - General 05/07/17 01/03/23 documented as of this encounter
--- OUTSIDE RECORDS SUMMARY | 2025-06-16 13:45 | XMS_ITS | Encounter Summary ---
Author Organization [facility] Address [address] [place] [address] Phone Care Team Providers Care Fountain Worker Name Role Phone Kayleen Owens NP Primary Care Provider Kim rendon Encounter Details Date Type Department Care Team (Late st Contact Info) Description 05/13/2017 Conversion Encounter [facility] - [address] [phone] Social History Tobacco Use Types Packs/Day Years [...] on filedocumented in this encounter Care Teams Fountain Worker Relationship Specialty Start Date End Date Kayleen Owens NP PCP - General 05/07/17 01/03/23 documented as of this encounter
== END 2025-06-16 13:45 | disposition home or self-care (01) ==
LOC: HO.ED 13:42
PROVIDERS: Emergency Provider Emergency Medicine
DX: Z48.02 Encounter for removal of sutures (principal)
CPT/HCPCS: 99282